=== PATIENT | female | born 1955 | race Caucasian/White ===

== ENCOUNTER 2016-08-23 10:01 | Day surgery (SDC) | payer OTHER ==
--- NOTE | 2016-08-22 14:16 | PREOPHP ---
DATE OF ADMISSION: 08/23/2016 HISTORY OF PRESENT ILLNESS: This 61-year-old patient is admitted for elective cataract surgery of t he left eye. The patient has had progressive deterioration of vision over a period of 2 years' time and 4 months ago underwent cataract surgery on the right eye with good visual result. The patient is currently being admitted for cataract surgery of the left eye. The patient has a systemic histor y that is positive for hypertension, controlled with lisinopril. ALLERGIES: THERE ARE NO KNOWN ALLERGIES. PHYSICAL EXAMINATION: Visual acuity with best correction is 20/50 in the right eye and 20/200 in th e left eye. Slit lamp examination reveals a posterior chamber intraocular lens in appropriate posit ion in the right eye and a nuclear sclerotic cataract in the left eye. The patient has a history of high myopia; however, no retinal pathological findings on examination. DIAGNOSIS: Cataract, left eye. PLAN: Cataract extraction with lens implant, left eye. The risks and alternatives to the surgery h ave been discussed with the patient as well as the hope for improvement of visual acuity leading to a greater ability to perform activities of daily living. The patient understands this and agrees to proceed with surgery. Dictated By: THONG DAWN/KYRIE Conf#: [id number] DID#: [id number]
[2016-08-23] VITALS (8 sets, daily range): BP systolic 111–145; BP diastolic 56–68; PULSE 64–70; RESP 14–18; Ht 144.8 cm; Wt 51.0 kg
[~2016-08-23] VITALS: Ht 144.8 cm; Wt 51.0 kg
[~2016-08-23 10:01] MED LIST: LISI10TA2 PO
[2016-08-23] MEDS ORDERED: TROPICAMIDE 1% 2 ML OPH OPER SCH (11:00)
[2016-08-23] MEDS ORDERED: DICLOFENAC 0.1% 2.5 ML OPH OPER SCH (11:00)
[2016-08-23] MEDS ORDERED: CYCLOPENTOLATE/PHENYLEPH 2 ML OPH OPER SCH (11:00)
[2016-08-23] MEDS ORDERED: CIPROFLOXACIN 0.3% 2.5 ML OPH OPER SCH (11:00)
[2016-08-23] MEDS ORDERED: METOCLOPRAMIDE 10 MG INJ IV PRN (12:30)
[2016-08-23] MEDS ORDERED: MEPERIDINE 25 MG INJ IV PRN (12:30)
[2016-08-23] MEDS ORDERED: PROCHLORPERAZINE 10 MG INJ IV PRN (12:30)
[2016-08-23] MEDS ORDERED: ONDANSETRON 4 MG INJ IV PRN (12:30)
[2016-08-23] MEDS ORDERED: DIPHENHYDRAMINE 50 MG INJ IV PRN (12:30)
[2016-08-23] MEDS ORDERED: OXYCODONE/ACETAMINOPHEN (5/325) TAB PO PRN (12:30)
[2016-08-23] MEDS ORDERED: FENTAnyl 50 MCG/ML VIAL IV PRN (12:30)
[2016-08-23] MEDS ORDERED: CALC500T91 PO (12:39)
[2016-08-23] MEDS ORDERED: LIDOCAINE 2% (SDV) 5 ML INJ ONE (13:09)
[2016-08-23] MEDS ORDERED: PROPOFOL 20 ML ONE (13:09)
[2016-08-23] MEDS ORDERED: MIDAZOLAM 1 MG/ML 2 ML INJ ONE (13:09)
[2016-08-23] MEDS ORDERED: GENTAMICIN 80 MG INJ ONE (13:32)
[2016-08-23] MEDS ORDERED: DEXAMETHASONE 4 MG/ML 1 ML INJ ONE (13:32)
[2016-08-23] MEDS ORDERED: EPINEPHrine 1 MG INJ ONE (13:32)
[2016-08-23] MEDS ORDERED: CEFAZOLIN 1 GM INJ ONE (13:32)
[2016-08-23] MEDS ORDERED: LIDOCAINE 4% (MPF) 5 ML INJ ONE (13:32)
[2016-08-23] MEDS ORDERED: CARBACHOL 0.01% 1.5 ML OPH INJ ONE (13:32)
[2016-08-23] MEDS ORDERED: HYALURONATE/CHONDROITIN 1ML OPH INJ IO ONE (13:45)
[2016-08-23] MEDS ORDERED: CEFAZOLIN 1 GM INJ INJ ONE (13:45)
[2016-08-23] MEDS ORDERED: DEXAMETHASONE 4 MG/ML 1 ML INJ INJ ONE (13:45)
[2016-08-23] MEDS ORDERED: CARBACHOL 0.01% 1.5 ML OPH INJ IO ONE (13:45)
[2016-08-23] MEDS ORDERED: ONDANSETRON 4 MG INJ ONE (13:58)
--- NOTE | 2016-08-23 14:52 | OPR ---
DATE OF OPERATION: 08/23/2016 PREOPERATIVE DIAGNOSIS: Cataract, left eye. POSTOPERATIVE DIAGNOSIS: Cataract, left eye. OPERATION PERFORMED: Cataract extraction with lens implant, left eye. SURGEON: Thong Montgomery MD ANESTHESIA: Local standby. ANESTHESIOLOGIST: Lina Dela Cruz MD PROCEDURE: The patient was brought to the operating room and placed on the table with an IV in plac e and the patient attached to an monitor technician. Oxygen was given via face mask. After some intravenous sedation was administered, local anesthesia was given using Xylocaine 2% with epinephrine, mixed with Marcaine 0.5%. This was given in a lid block and retrobulbar injection. The patient was then prepped and draped in the usual sterile manner. A wire lid speculum was inserted between the lids of the left eye. A Superblade was used to enter th e anterior chamber at the corneoscleral limbus at the 10:30 o'clock position. A separate incision wa s made using a 3.0-mm keratome which entered the corneoscleral junction at the 12 o'clock position. Through this 3-mm opening, an irrigating cystitome was introduced into the anterior chamber. The arslan mber was filled with Viscoat and an anterior capsulotomy was performed. Balanced salt solution was t hen used for hydrodissection of the lens. A phacoemulsification handpiece was then brought into the field and introduced into the anterior chamber. The lens nucleus was emulsified using a deep groove and cracking the nucleus into quadrants. Following this, each quadrant was aspirated and emulsified at the pupillary margin. After this was completed, the irrigation/aspiration handpiece was brought to the field, introduced i nto the posterior chamber, and the lens cortical material was removed. When this was completed, sommer tional Viscoat was injected into the anterior and posterior chambers. The 3-mm opening had its internal lips enlarged, and then the posterior chamber intraocular lens bishnu suring 7.5 diopters (Bausch and Lomb model LI61AO) was then injected into the posterior chamber usin g the lens injector system. After the leading haptic was introduced into the capsular bag and the le ns optic was present in the center of the eye, the injector was removed and the trailing haptic was grasped with non-toothed forceps and introduced into the capsular fold superiorly. A Sinskey hook wa s then used to rotate the intraocular lens so that the lips were oriented in the horizontal meridian . One 10-0 nylon suture was placed across the wound. Prior to tying, the irrigation/aspiration handpiece was reintroduced into the anterior chamber to re move the Viscoat. Miochol was instilled to constrict the pupil, and then the 10-0 nylon suture was t ied. The ends were cut short and then the knot was buried. Then, 0.5 mL of dexamethasone and 0.5 mL of Ancef were injected into the sub-Tenon space in the infe rior fornix. Ciloxan drops were then placed on the surface of the eye. The speculum was removed and a patch was applied. The patient then left the operating room in satisfactory condition. Dictated By: THONG DAWN/KYRIE Conf#: [id number] DID#: [id number]
== END 2016-08-23 15:47 | disposition home or self-care (01) ==
LOC: SDS 10:01
PROVIDERS: ATTEND Ophthalmology
DX: H25.12 Age-related nuclear cataract, left eye (principal); I10 Essential (primary) hypertension
CPT/HCPCS: 66984; J0171; J0690; J1100; J1580; J2250; J2405; V2632; Z7512; Z7610